=== PATIENT | male | born 1970 | race Caucasian/White ===

== ENCOUNTER → 2018-10-31 | Outpatient (CLI) | payer BC ==
[2018-11-01 04:30] LABS: LDL Cholesterol,Calculated 105.8 mg/dL (0.0-131.0); VLDL Calculation 25.2 mg/dL (5.00-40.00)
== END | disposition home or self-care (01) ==
LOC: LABWHC1 17:12
PROVIDERS: ATTEND Nurse Practitioner Adult Health
DX: E78.5 Hyperlipidemia, unspecified (principal)
CPT/HCPCS: 36415; 80061; 84450; 84460

== ENCOUNTER → 2021-03-25 | Outpatient (CLI) | payer BC ==
--- NOTE | 2021-03-25 16:37 | CONS ---
CONSULTATION DATE OF SERVICE: 03/25/2021 This 51-year-old gentleman had been evaluated in [facility] for obstructive sleep apnea-hypopnea syndrome. HISTORY OF PRESENT ILLNESS/SLEEP-WAKE EVALUATION: The patient had been diagnosed with obstructive sleep apnea in 2012, was started on treatment with CPAP and then he lost about 50 pounds since the original sleep study, started to sleep better and presently does not use his CPAP equipment on a regular basis. Patient usual sleep schedule from 10 p.m. to 6:30 a.m.; on weekends from 12 midnight until 7 to 8 a.m. No problems with falling asleep, although patient has TV set in bedroom. He usually sleeps on the side position. He snores mildly presently and according to patient, rarely wakes up from sleep. Sometimes he has jerking movements during the sleep. No history of hypnagogic hallucinations, sleep paralysis or cataplexy. The [place] Sleepiness Scale is 8. PAST MEDICAL HISTORY: Positive for atrial fibrillation, status post cardiac ablation in 2011 no episodes since that time, hypertension. MEDICATIONS: Valsartan. PAST SURGICAL HISTORY: Cardiac ablation 2011. SOCIAL HISTORY: Negative for smoking. Alcohol consumption occasional. FAMILY HISTORY: Hypertension. REVIEW OF SYSTEMS: Mild snoring. No fevers. No double vision. No recent chest pain. No shortness of breath. No abdominal pain. No bleeding episodes. No blood in the urine. No seizure episodes. PHYSICAL EXAMINATION: GENERAL: gentleman without distress. VITAL SIGNS: BP 127/71, HR 74, RR 12, height 6 feet 3 inches, weight 254.4, temperature 97.0, oxygen saturation at room air 96%, body mass index 32.2. HEENT: PERRLA, EOMI. Oropharynx low position of soft palate. NECK: Wide 17-1/2 inches in circumference. LUNGS: Clear to percussion and to auscultation. Good air exchange. No wheezing or rhonchi. HEART: S1, S2 regular. No murmurs, gallops, or rubs. ABDOMEN: Soft and nontender. Bowel sounds are present. No organomegaly appreciated. EXTREMITIES: No clubbing or cyanosis. PRIMARY COUNSELOR: Awake, alert, and oriented X3. Cranial nerves 2 to 7 intact. There is no fasciculation or atrophy. noted. No focal deficits observed. IMPRESSION: 1. Obstructive sleep apnea-hypopnea syndrome diagnosed in another institution in 2012. Since that time, patient lost about 50 pounds of weight, sleep better without machine now. He still continued to have mild snoring. 2. Hypertension. 3. History of atrial fibrillation, treated by cardiac ablation in 2011. 4. Mild obesity; body mass index 32.2. 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 Home sleep apnea test for evaluation of patient's breathing during sleep at the present time after losing about 50 pounds of weight. 2. I gave prescription for all necessary CPAP supplies including nasal Mirage FX size mask, tube, filters. 3. Patient should continue to use CPAP equipment at the present time every night for the whole night before we will get information about his respiration. 4. Watching and losing weight. 5. Sleep hygiene with regular time in bed for 7-1/2 to 8 hours. 6. Precautions related to driving. No driving if feeling any sleepiness. Thank you very much for referring this patient for consultation. Sincerely, Tony Mckenzie MD, PhD, FAASM Diplomat of [employer] Marine Mammal Trainer of [facility] [place] MMODL / IJN: [id number] /
== END ==
LOC: SLEEP 14:20
PROVIDERS: ATTEND Internal Medicine
DX: G47.33 Obstructive sleep apnea (adult) (pediatric) (principal); E66.9 Obesity, unspecified; I48.91 Unspecified atrial fibrillation; Z68.32 Body mass index [BMI] 32.0-32.9, adult; I10 Essential (primary) hypertension
CPT/HCPCS: 99211

== ENCOUNTER → 2021-04-29 | Outpatient (CLI) | payer BC ==
--- NOTE | 2021-04-30 07:04 | SFUN ---
SLEEP CENTER FOLLOW UP NOTE DATE OF SERVICE: 04/29/2021 51-year-old gentleman has been followed in Sleep Center for treatment of obstructive sleep apnea-hypopnea syndrome. The patient has history of obstructive sleep apnea in the past for evaluation. We repeat the home sleep apnea test which showed apnea-hypopnea index 37.3 but duration of evaluation was only 2 hours 17 minutes. 23 central apneas, also was documented during the test. Discussed results of sleep study with the patient in detail. MEDICATIONS: Valsartan. PHYSICAL EXAMINATION: GENERAL: Patient in no distress. BP 119/78, HR 74, RR 15, height 6 feet 2-3/4 inches, weight 255.6 pounds, body mass index 32.1, temperature 97.8, oxygen saturation at room air 97%. Oropharynx low position of soft palate. NECK: Supple, no JVD. Thyroid is not palpable. LUNGS: Clear to percussion and to auscultation. Good air exchange. No wheezing or rhonchi. HEART: S1, S2 regular. No murmurs, gallops, or rubs. ABDOMEN: Soft and nontender. Bowel sounds are present. No organomegaly appreciated. EXTREMITIES: No clubbing or cyanosis. COMMERCIAL LOAN OFFICER: Awake, alert, and oriented X3. Cranial nerves 2 to 7 intact. There is no fasciculation or atrophy. noted. No focal deficits observed. IMPRESSION: 1. Obstructive sleep apnea-hypopnea syndrome is severe range, snoring. 2. Hypertension. 3. History of atrial fibrillation, status post cardiac ablation in 2011. 4. Mild obesity. 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 The patient will start treatment with CPAP as soon as possible and should use equipment every night for the whole night. 2. Watching weight. 3. Sleep hygiene with regular time in bed for 7.5 to 8 hours. 4. No driving if feeling sleepiness. 5. Follow-up visit in 30 days after the patient will start using CPAP unit to evaluate clinical response on treatment, compliance with treatment and make any necessary adjustments related to mask fitting, pressure and humidification. 6. Precautions related to driving. No driving if feeling sleepiness. Patient promised to follow recommendations. 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 He is aware about civil and criminal liability for unsafe driving. Thank you very much for allowing me to participate in management of your patient. Sincerely, Tony Mckenzie MD, PhD, FAASM Diplomat of [employer] Applied Computer Science Professor of [facility] [place] MMODL / NATALIAN: [id number] /
== END ==
LOC: SLEEP 14:38
PROVIDERS: ATTEND Internal Medicine
DX: G47.33 Obstructive sleep apnea (adult) (pediatric) (principal); I10 Essential (primary) hypertension; Z98.890 Other specified postprocedural states; I48.91 Unspecified atrial fibrillation; E66.09 Other obesity due to excess calories; Z68.32 Body mass index [BMI] 32.0-32.9, adult

== ENCOUNTER → 2021-09-23 | Outpatient (CLI) | payer BC ==
--- NOTE | 2021-09-23 13:59 | SFUN ---
SLEEP CENTER FOLLOW UP NOTE DATE OF SERVICE: 09/23/2021 51-year-old gentleman has been followed in Sleep Center for treatment of obstructive sleep apnea-hypopnea syndrome. Recently, the patient had home sleep apnea test which confirmed obstructive sleep apnea- hypopnea syndrome in severe range. Apnea-hypopnea index 37.3, and I discussed results of sleep study with the patient in detail. Subsequently, he was started on treatment with CPAP. Today is his first visit on CPAP. He feels better with the machine. Sleeps better and feels better during the day. [place] Sleepiness Scale today is 9. I checked CPAP unit. Range of the pressure 5-15. Average pressure 11.4, usage is 26/30 nights and 22/30 nights more than 4 hours with average usage 5.7 hours per night which is good compliance. Leak is 20 L/minute, which is borderline. Apnea-hypopnea index is 3.7 which is in normal range. MEDICATIONS: Valsartan. PHYSICAL EXAMINATION: GENERAL: Patient in no distress BP 122/78 HR 75, RR 15, weight 265.8, temperature 97.4, oxygen saturation at room air 96%. Oropharynx low position of soft palate. Neck is 17-1/2 inches in circumference. NECK: Supple, no JVD. Thyroid is not palpable. LUNGS: Clear to percussion and to auscultation. Good air exchange. No wheezing or rhonchi. HEART: S1, S2 regular. No murmurs, gallops, or rubs. ABDOMEN: Soft and nontender. Bowel sounds are present. No organomegaly appreciated. EXTREMITIES: No clubbing or cyanosis. FEATHER EDGER: Awake, alert, and oriented X3. Cranial nerves 2 to 7 intact. There is no fasciculation or atrophy. noted. No focal deficits observed. IMPRESSION: 1. Obstructive sleep apnea-hypopnea syndrome. Patient demonstrated good compliance with treatment benefitting from treatment. 2. Hypertension. 3. History of atrial fibrillation treated by cardiac ablation in 2011. 4. Mild obesity. The patient increased his weight on about 11 pounds since previous visit. 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 Patient will continue to use PAP equipment every night for the whole night. 2. Sleep hygiene with regular time in bed for at least 7-1/2 to 8 hours. 3. Precautions related to driving. No driving if feeling sleepiness. 4. I will maintain all necessary prescription for PAP supplies including mask, tube, filters. 5. Watching weight. 6. Follow-up visit in 6 months or earlier if patient has any problems. Thank you very much for allowing me to participate in management of your patient. Sincerely, Tony Mckenzie MD, PhD, FAASM Diplomat of [employer] Sleep Medicine Board of [employer] Undraped Artist Model of [facility] [place] [id number] / JERSON: [id number] /
== END ==
LOC: SLEEP 11:01
PROVIDERS: ATTEND Internal Medicine
DX: G47.33 Obstructive sleep apnea (adult) (pediatric) (principal); I10 Essential (primary) hypertension; E66.9 Obesity, unspecified; Z99.89 Dependence on other enabling machines and devices; Z86.79 Personal history of other diseases of the circulatory system

== ENCOUNTER → 2022-03-24 | Outpatient (CLI) | payer BC ==
--- NOTE | 2022-03-24 22:16 | SFUN ---
SLEEP CENTER FOLLOW UP NOTE DATE OF SERVICE: 03/24/2022 52-year-old gentleman has been followed in Sleep Center for treatment of obstructive sleep apnea-hypopnea syndrome. The patient continues to use CPAP equipment every night no significant problems with the machine. [place] Sleepiness Scale today is 8. He slightly increased his weight. I checked CPAP unit, it is in automatic regimen. Range of the pressure 5-15. Average pressure 12.2, usage is 27/30 nights and 22/30 nights more than 4 hours, average 5 hours per night, which is acceptable compliance. Leak is 22 L/minute, which is normal range. Apnea-hypopnea index is 4.2, which is in normal range. MEDICATIONS: Valsartan. PHYSICAL EXAMINATION: GENERAL: Patient in no distress. BP 125/85, HR 72, RR 16, temperature 97.3, oxygen saturation at room air 96%. HEENT: Oropharynx low position of soft palate. NECK: Supple, no JVD. Thyroid is not palpable. LUNGS: Clear to percussion and to auscultation. Good air exchange. No wheezing or rhonchi. HEART: S1, S2 regular. No murmurs, gallops, or rubs. ABDOMEN: Soft and nontender. Bowel sounds are present. No organomegaly appreciated. EXTREMITIES: No clubbing or cyanosis. MANAGER EPIC: Awake, alert, and oriented X3. Cranial nerves 2 to 7 intact. There is no fasciculation or atrophy. noted. No focal deficits observed. IMPRESSION: 1. Obstructive sleep apnea-hypopnea syndrome. The patient demonstrated good compliance with treatment benefitting from treatment. Normal respiration on CPAP but slightly higher than the BP during previous visit. 2. Hypertension. 3. History of atrial fibrillation, status post cardiac ablation in 2011. No episodes of atrial fibrillation. 4. Mild obesity. 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 I slightly changed regimen in his AutoPAP to the range of the pressure from 5-16 cm of water. 2. Patient will continue to use PAP equipment every night for the whole night. 3. Sleep hygiene with regular time in bed for at least 7-1/2 to 8 hours. 4. Precautions related to driving. No driving if feeling sleepiness. 5. I will maintain all necessary prescription for PAP supplies including mask, tube, filters. 6. Watching weight. 7. Follow-up visit in 6 months or earlier if patient has any problems. Thank you very much for allowing me to participate in management of your patient. Sincerely, Tony Mckenzie MD, PhD, FAASM Diplomat of [employer] Sleep Medicine Board of [employer] Bar Steward of [facility] [place] GUILLERMINA / JESRON: [id number] /
== END ==
LOC: SLEEP 16:39
PROVIDERS: ATTEND Internal Medicine
DX: G47.33 Obstructive sleep apnea (adult) (pediatric) (principal); Z99.89 Dependence on other enabling machines and devices; I10 Essential (primary) hypertension; I48.91 Unspecified atrial fibrillation; E66.9 Obesity, unspecified